=== PATIENT | male | born 1985 | race Caucasian/White ===

== ENCOUNTER 2024-04-20 15:16 | Emergency (ER) | payer OTHER, SELFPAY ==
[2024-04-20 15:18] VITALS: BP 137/90; BMI 22.3
[2024-04-20 15:48] LABS: % Basophils 0.8 % (0-2); % Eosinophils 0.8 % (0-6); % Immature Granulocytes 0.2 % (0-0.5); % Lymphocytes 18.4 % (20.5-51.1); % Monocytes 5.1 % (1.7-9.3); % Neutrophils 74.7 % (42.2-75.2); Absolute Basophils 0.1 10^3/uL (0-0.2); Absolute Eosinophils 0.1 10^3/uL (0-0.7); Absolute Lymphocytes 1.6 10^3/uL (1.2-3.4); Absolute Monocytes 0.4 10^3/uL (0.1-0.6); Absolute Neutrophils 6.5 10^3/uL (1.4-6.5); Hematocrit 40.6 % (39.0-52.0); Hemoglobin 14.3 g/dL (13.0-18.0); Mean Corp Hgb Conc. 35.2 g/dL (33.0-37.0); Mean Corpuscular Hgb 30.9 pg (27.0-31.0); Mean Corpuscular Volume 87.7 fL (80.0-94.0); Mean Platelet Volume 9.8 fL (7.4-10.4); Nucleated Red Blood Cells % 0 % (-); Platelet Count 227 10^3/uL (130-400); Red Blood Cell Count 4.63 10^6/uL (4.70-6.10); Red Cell Dist. Width 13.1 % (11.5-14.5); White Blood Cell Count 8.7 10^3/uL (4.8-10.8)
[2024-04-20 15:59] LABS: ALT (SGPT) 51 U/L (0-50); AST (SGOT) 27 U/L (17-59); Acetaminophen < 10 ug/ml (10-30); Albumin 4.7 g/dl (3.5-5.0); Alkaline Phosphatase 84 U/L (38-126); Blood Urea Nitrogen 23 mg/dl (9-20); Calcium 9.8 mg/dl (8.4-10.2); Carbon Dioxide 28 mmol/L (22-30); Chloride 105 mmol/L (98-107); Estimated Creatinine Clearance > 125 ml/min; Glucose 117 mg/dl (70-99); Potassium 4.2 mmol/L (3.5-5.1); Salicylate < 1.0 mg/dl (2.0-20.0); Sodium 142 mmol/L (135-145); Total Bilirubin 0.4 mg/dl (0.2-1.3); Total Protein 7.7 g/dl (6.3-8.2); eGFR > 60.00
[2024-04-20 16:04] LABS: Alcohol None Detected
[2024-04-20 16:04] LABS: Urine Albumin Negative (Neg - Trace); Urine Bilirubin 1+ (Negative); Urine Character Clear (Clear); Urine Color Amber; Urine Glucose Negative (Negative); Urine Ketone Trace (Negative); Urine Leukocyte Trace (Negative); Urine Nitrite Negative (Negative); Urine Occult Blood Negative (Negative); Urine Specific Gravity 1.025 (<1.030); Urine Urobilinogen 1+ (Neg - 1+)
--- NOTE | 2024-04-20 16:05 | ED.GENMED ---
History of Present Illness
General
Chief Complaint: Crisis Evaluation
Source: patient
Exam Limitations: none
Time Seen by Provider: 04/20/24 15:19
Nursing documentation reviewed up to this point in time: agreed with
Travel History
Have you had any contact with someone who has COVID-19?: No
Do you have any symptoms of coronavirus? Fever > 100 degrees, chills, cough, shortness of breath, sore throat, loss of taste or smell, muscle aches, or headache?: No
History of Present Illness
History of Present Illness:
38 y/o M wit hh/o htn, polysubstance abuse (fentanyl, meth)
here requesting drug rehab
pt says he was at another hospital 2 weeks ago for same, relapsing on meth and fentanyl and was sent [facility] but then left after a week
he has been homeless this past week becuase he doesn't want to go home where he says there are bad influences and people who use drugs who aren't good for him
he is here requesting rehab
he does have h/o mental health/anxiety but has no SI, HI, hallucinations
he doesn't feel acitve withdrawal from drgus
he says christin previous to the fentanyl/meth he used last 3 days ago, he had been clean for 6 days while in rehab and then before that was only using meth once a month and hadn't used fenatnyl in 8 mo or so
he denies alcohol abuse
pt hasn't slept well
no vomiting, diarrhea, abdomianl pain, headache
did get dx with lyme disease rash 2 eweks ago when he as at the [facility] ER where pt had large bullesey rash on chest
pt says that he was taking doxy until he left rehab and hasn't been on it
Past History
Past History
ED Past Medical History: HTN and Psychiatric
Social History
Tobacco: Smoker
Alcohol: None
Drug: Narcotics and Other (meth)
Review of Systems
Review of Systems
Allergies reviewed?: Yes
All Other Systems: Not applicable
Phy Exam
Physical Exam
Physical Exam:
GENERAL: Alert , in no apparent distress, calm cooperative, not dishevled
EYE: pupils equal and reactive
NECK: Supple
ENT: o/p clr, mmm.
CARDIAC: Regular rate and rhythm .
LUNGS: Clear breath sounds bilaterally, no acute respiratory distress, no wheezes/rales/rhonchi
ABDOMEN: Soft, without focal tenderness, no r/g, no cvat, normal bowel sounds
NEUROLOGICAL: Alert and oriented, no focal neuro deficits
SKIN: Warm and dry, skin intact. no ECM rash
MUSCULOSKELETAL: No edema, well perfused. neg gaudencio's sign
PSYCH: Normal and appropriate interaction.
Course
Orders/Labs/Results
Orders:
Orders
04/20/24 15:32
Acetaminophen Urgent
Alcohol Urgent
Complete Blood Count/With Diff Urgent
Comprehensive Metabolic Panel Urgent
Salicylate Urgent
04/20/24 15:47
Fentanyl, Urine Urgent
Urinalysis Reflex To Culture Urgent
Date Specimen was Collected: 04/20/24
Time Specimen was Collected: 15:28
Urine Drug Abuse Screen Urgent
Date Specimen was Collected: 04/20/24
Time Specimen was Collected: 15:36
Urine Microscopic Reflex Cult Urgent
04/20/24 16:04
Doxycycline [Vibramycin] 100 mg PO NOW STA
04/20/24 17:21
Lorazepam [Ativan] 1 mg PO NOW STA
Abnormal Lab Results
04/20/24 04/20/24
15:32 15:47
RBC 4.63 L 10^6/uL
(4.70-6.10)
Lymphocytes % 18.4 L %
(20.5-51.1)
BUN 23 H mg/dl
(9-20)
Creatinine 0.6 L mg/dL
(0.7-1.3)
Glucose 117 H mg/dl
(70-99)
ALT 51 H U/L
(0-50)
Urine Ketones Trace A
(Negative)
Urine Bilirubin 1+ A
(Negative)
Leukocyte Esterase Rfl Trace A
(Negative)
Salicylates < 1.0 L mg/dl
(2.0-20.0)
Ur Buprenorphine Positive H
(Negative)
Acetaminophen < 10 L ug/ml
(10-30)
U Marijuana (THC) Screen Positive H
(Negative)
04/20/24 15:32
04/20/24 15:32
Vital Signs
Initial and Last Documented VS:
Initial Vital Signs
Temp Pulse Resp BP Pulse Ox
98.1 F 102 16 137/90 96
04/20/24 15:18 04/20/24 15:18 04/20/24 15:18 04/20/24 15:18 04/20/24 15:18
Last Documented Vital Signs
Temp Pulse Resp BP Pulse Ox
98.1 F 102 16 137/90 96
04/20/24 15:18 04/20/24 15:18 04/20/24 15:18 04/20/24 15:18 04/20/24 15:18
MDM/Problems Addressed
Differential Diagnosis Includes:
withdrawal, drug abuse
MDM/Problems Addressed:
38 y/o M with htn
drug abuse
here requesting rehab
withdrawing slightly from polysubstance abuse
no medical complaitns currently
a ittle anxious
no SI, HI
also had ecm rash dx 2 weeks ago and only completed 1 week doxy
needs aonther sccript
no lyme disease symptoms
on exam well appearing
hr 90 for me
labs evlauated
neg for opiates and meth which hea dmits to
neg for bz
on suboxone
seen by [facility] and placed for rehab
d/c
*Critical Care Note
Total Time (30-74mins, 75-104mins- exclusive of procedures): Not Applicable
ED Attending Note
-
Portions of this chart may have been created with voice recognition software.� Occasional wrong word or��sound alike� substitutions may have occurred due to the inherent limitations of voice recognition software.
Discharge Plan
Departure
Patient Disposition: Home (Routine Discharge)
Date of Disposition: 04/20/24
Time of Disposition: 18:10
Patient with high blood pressure during this ER visit?: No
Condition: Fair
Discharge Problem:
Withdrawal syndrome
Instructions: Drug and Alcohol Abuse Information
Prescriptions:
New
doxycycline hyclate 100 mg tablet
100 mg PO BID Qty: 20 0RF
Referrals:
DEANDRA, DAVID [Other]
Activity Restrictions/Additional Instructions:
YOU WERE MEDICALLY CLEARED FOR REHAB PLACEMENT
YOU DID GET DIAGNOSED WITH LYME RASH AND WERE SUPPOSED TO TAKE 10 DAYS OF DOXYCYCLINE SO I RECOMMEND 100 MG TWICE A DAY FOR 10 DAYS
Interventions
Interventions:
*Risk Screen - Suicide Last Done: 04/20/24 15:18
*General Assessment Last Done: 04/20/24 15:18
*Neglect/Abuse Screening Last Done: 04/20/24 15:18
ED- Fall Risk Assessment Last Done: 04/20/24 18:12
*ED COVID-19 Vaccine History Last Done: 04/20/24 15:18
*Nursing Disposition Last Done: 04/20/24 18:12
ED-Psychological Assessment Last Done: 04/20/24 15:18
Discharge Date and Time
Discharge Date/Time: 04/20/24 18:13
Print Language: DIVEHI
[2024-04-20 16:08] LABS: Marijuana Positive (Negative); Tricyclic Antidepressants Negative (Negative)
[2024-04-20 16:09] LABS: Amphetamines Negative (Negative); Barbiturates Negative (Negative); Benzodiazepines Negative (Negative); Buprenorphine Positive (Negative); Cocaine Negative (Negative); Methadone Negative (Negative); Methamphetamines Negative (Negative); Opiates Negative (Negative); Phencyclidine Negative (Negative)
[2024-04-20 16:22] LABS: Urine Calcium Oxalate Crystals Present; Urine White Cell 0-2 /HPF (0-5)
[2024-04-20] MEDS: VIBRAMYCIN 100 MG PO (16:24)
[2024-04-20 16:28] LABS: Fentanyl, Urine Negative (Negative)
[2024-04-20] MEDS: ATIVAN 1 MG PO (17:25)
== END 2024-04-20 18:13 | disposition home or self-care (01) ==
LOC: EMR 15:16
PROVIDERS: Physician Assistant; EMERGENCY PHYSICIAN Student in an Organized Health Care Education/Training Program
DX: F19.230 Other psychoactive substance dependence with withdrawal, uncomplicated (principal); F17.200 Nicotine dependence, unspecified, uncomplicated; I10 Essential (primary) hypertension; Z59.00 Homelessness unspecified
CPT/HCPCS: 99283; 80053; 80143; 80179; 80306; 80307; 81003; 81015; 82077; 85025